=== PATIENT | male | born 1955 | race Caucasian/White ===

== ENCOUNTER 2020-12-03 20:17 | Emergency (ER) | payer BC ==
[2020-12-03] MEDS ORDERED: Ibuprofen 600 MG Tab PO ONE (21:26)
--- NOTE | 2020-12-03 21:26 | EDM.PDOC ---
ED HPI GENERAL MEDICAL PROBLEM - General Chief Complaint: Respiratory Problem Stated Complaint: COVID+/LOW O2 Time Seen by Provider: 12/03/20 20:45 Source of Information: Reports: Patient History Limitations: Reports: No Limitations, Other (ED vital signs reveal a temp of 102.1, pulse of 92, respiratory rate of 28, blood pressure 167/91, pulse ox 92% on room air.) - History of Present Illness INITIAL COMMENTS - FREE TEXT/NARRATIVE: 65-year-old male presents the emergency department today with increasing shortness of breath and low oxygen saturations due to Covid. The patient states he developed Covid symptoms on 11/26/2020 and was seen at [facility] 2 days ago and tested positive for Covid. He states that today he had a high fever and had increasing shortness of breath so he returned to the walk-in clinic. Apparently they did perform a chest x-ray and do lab studies. He was notified that he has pneumonia related to Covid. He was prescribed cough syrup, methylprednisolone, Tessalon Perles and an inhaler as well as given home oxygen monitor. He was told to come to emergency department if his O2 saturations were less than 90%. Patient states that his monitor showed 88% and he elected to come to the emergency department. The patient denies any history of smoking. He is obese with a BMI of 42.4. He also has a history of hypertension. Generalized Pain Score (Numeric/FACES): 6 - Related Data Allergies Allergy/AdvReac Type Severity Reaction Status Date / Time No Known Allergies Allergy Verified 12/03/20 20:30 Home Meds: Home Meds Albuterol Sulfate [Albuterol Sulfate HFA] 1 puff INH Q4H PRN 12/03/20 [History] Benzonatate 1 tab PO TID PRN 12/03/20 [History] Sertraline [Zoloft] 1 tab PO DAILY 12/03/20 [History] Valsartan 1 tab PO DAILY 12/03/20 [History] busPIRone [Buspar] 1 tab PO BID 12/03/20 [History] methylPREDNISolone [Methylprednisolone] 1 dose PO ASDIRECTED 12/03/20 [History] Past Medical History Cardiovascular History: Reports: Hypertension Psychiatric History: Reports: Anxiety, Depression - Infectious Disease History Infectious Disease History: Reports: Chicken Pox, Novel Coronavirus - Past Surgical History Musculoskeletal Surgical History: Reports: Knee Replacement, Other (See Below) Other Musculoskeletal Surgeries/Procedures:: back surgery Social & Family History - Tobacco Use Tobacco Use Status *Q: Current Every Day Tobacco User Years of Tobacco use: 50 Packs/Tins Daily: 0.5 - Caffeine Use Caffeine Use: Reports: Coffee, Tea - Recreational Drug Use Recreational Drug Use: No ED ROS GENERAL - Review of Systems Review Of Systems: Comprehensive ROS is negative, except as noted in HPI. ED EXAM, GENERAL - Physical Exam Exam: See Below Exam Limited By: No Limitations General Appearance: Alert, WD/WN, Mild Distress Ears: Normal External Exam, Hearing Grossly Normal Nose: Normal Inspection Throat/Mouth: Normal Inspection, Normal Lips, Normal Voice, No Airway Compromise Head: Atraumatic Neck: Normal Inspection, Supple Respiratory/Chest: Lungs Clear, No Accessory Muscle Use, Chest Non-Tender, Respiratory Distress, Decreased Breath Sounds Cardiovascular: Normal Peripheral Pulses, Regular Rate, Rhythm, No Edema, No Murmur Peripheral Pulses: 2+: Radial (L), Radial (R) GI/Abdominal: Normal Bowel Sounds, Soft, Non-Tender, No Distention (Male) Exam: Deferred Rectal (Males) Exam: Deferred Back Exam: Normal Inspection Extremities: Normal Inspection Neurological: Alert, Oriented, Normal Cognition Psychiatric: Normal Affect, Normal Mood Skin Exam: Warm, Dry, Intact, Normal Color, No Rash Lymphatic: No Adenopathy Course - Vital Signs Text/Narrative:: As stated above patient presents with increased shortness of breath due to worsening Covid symptoms. Upon exam, the patient's O2 saturations are 94% on room air. He does appear dyspneic at rest. Physical exam reveals diminished lung sounds posteriorly. Patient states that he was scheduled to have monoclonal antibodies as an outpatient on Sunday, December 06, 2020. I feel that this patient would be a good candidate to receive monoclonal antibodies today. I did discuss this with him and he is agreeable to receiving this. We will obtain lab studies to include a CBC, CMP, magnesium, C-reactive protein and a D- dimer as well as a portable chest x-ray. Last Recorded V/S: Last Vital Signs Temp 102.1 F H 12/03/20 20:24 Pulse 92 12/03/20 20:24 Resp 28 H 12/03/20 20:24 BP 167/91 H 12/03/20 20:24 Pulse Ox 92 L 12/03/20 20:24 - Orders/Labs/Meds Labs: Laboratory Tests 12/03/20 12/03/20 12/03/20 Range/Units 21:25 21:25 21:25 WBC 4.28 (4.23-9.07) K/mm3 RBC 3.85 L (4.63-6.08) M/mm3 Hgb 11.9 L (13.7-17.5) gm/dl Hct 35.9 L (40.1-51.0) % MCV 93.2 H (79.0-92.2) fl MCH 30.9 (25.7-32.2) pg MCHC 33.1 (32.2-35.5) g/dl RDW Std Deviation 51.4 H (35.1-43.9) fL Plt Count 159 L (163-337) K/mm3 MPV 10.2 (9.4-12.3) fl Neut % (Auto) 72.3 H (34.0-67.9) % Lymph % (Auto) 17.5 L (21.8-53.1) % [place] % (Auto) 9.6 (5.3-12.2) % Eos % (Auto) 0.2 L (0.8-7.0) Baso % (Auto) 0.2 (0.1-1.2) % Neut # (Auto) 3.09 (1.78-5.38) K/mm3 Lymph # (Auto) 0.75 L (1.32-3.57) K/mm3 [place] # (Auto) 0.41 (0.30-0.82) K/mm3 Eos # (Auto) 0.01 L (0.04-0.54) K/mm3 Baso # (Auto) 0.01 (0.01-0.08) K/mm3 D-Dimer, Quantitative 0.58 H (0.19-0.50) mg/L Sodium 133 L (136-145) mEq/L Potassium 4.4 (3.5-5.1) mEq/L Chloride 98 (98-107) mEq/L Carbon Dioxide 26 (21-32) mEq/L Anion Gap 13.4 (5-15) BUN 24 H (7-18) mg/dL Creatinine 1.0 (0.7-1.3) mg/dL Est Cr Clr Drug Dosing 86.77 mL/min Estimated GFR (MDRD) > 60 (>60) mL/min BUN/Creatinine Ratio 24.0 H (14-18) Glucose 114 H (70-99) mg/dL Calcium 8.6 (8.5-10.1) mg/dL Magnesium 1.7 L (1.8-2.4) mg/dL Total Bilirubin 0.3 (0.2-1.0) mg/dL AST 32 (15-37) U/L ALT 43 (16-63) U/L Alkaline Phosphatase 56 (46-116) U/L C-Reactive Protein 15.4 H* (<1.0) mg/dL Total Protein 7.0 (6.4-8.2) g/dl Albumin 3.4 (3.4-5.0) g/dl Globulin 3.6 gm/dL Albumin/Globulin Ratio 0.9 L (1-2) Meds: Medications Discontinued Medications Generic Name Dose Route Start Last Admin Trade Name Freq PRN Reason Stop Dose Admin Al Hydroxide/Mg Hydroxide 30 ml 12/03/20 22:13 12/03/20 23:53 Aluminum Hydroxide/Magnesium Hydroxide/Simethicone Susp 30 Ml Cup PO 12/03/20 22:14 30 ml ONETIME ONE Administration Diphenhydramine HCl 50 mg 12/03/20 22:55 Diphenhydramine 50 Mg/Ml Sdv IVPUSH ONETIME PRN hypersensitivity reaction Diphenhydramine HCl 50 mg 12/03/20 23:12 Diphenhydramine 50 Mg/Ml Sdv IVPUSH ONETIME PRN hypersensitivity reaction Epinephrine HCl 0.3 mg 12/03/20 22:55 Epinephrine 1 Mg/Ml Sdv IM ONETIME PRN hypersensitivity reaction Epinephrine HCl 0.3 mg 12/03/20 23:12 Epinephrine 1 Mg/Ml Sdv IM ONETIME PRN hypersensitivity reaction Famotidine 20 mg 12/03/20 22:55 Famotidine 20 Mg/2 Ml Sdv IVPUSH ONETIME PRN hypersensitivity reaction Famotidine 20 mg 12/03/20 23:12 Famotidine 20 Mg/2 Ml Sdv IVPUSH ONETIME PRN hypersensitivity reaction CASIRIVIMAB/IMDEVIMAB 10 ml/ 110 mls @ 220 mls/hr 12/03/20 22:55 Sodium Chloride IV 12/03/20 23:24 ONETIME ONE SOTROVIMAB 500 mg/ Sodium 108 mls @ 216 mls/hr 12/03/20 23:12 12/03/20 23:52 Chloride IV 12/03/20 23:41 216 mls/hr ONETIME ONE Administration Ibuprofen 600 mg 12/03/20 21:26 12/04/20 01:28 Ibuprofen 600 Mg Tab PO 12/03/20 21:27 Not Given ONETIME ONE Methylprednisolone Sodium Succinate 125 mg 12/03/20 22:55 Methylprednisolone Sodium Succinate 125 Mg/2 Ml Sdv IVPUSH ONETIME PRN hypersensitivity reaction Methylprednisolone Sodium Succinate 125 mg 12/03/20 23:12 Methylprednisolone Sodium Succinate 125 Mg/2 Ml Sdv IVPUSH ONETIME PRN hypersensitivity reaction Ondansetron HCl 4 mg 12/03/20 23:42 12/03/20 23:52 Ondansetron 4 Mg Tab.Dis PO 12/03/20 23:43 4 mg ONETIME ONE Administration Sodium Chloride 30 ml 12/03/20 23:00 Sodium Chloride 0.9% 10 Ml Syringe FLUSH ASDIRECTED [facility] Sodium Chloride 30 ml 12/03/20 23:15 Sodium Chloride 0.9% 10 Ml Syringe FLUSH ASDIRECTED [facility] - Re-Assessments/Exams Free Text/Narrative Re-Assessment/Exam: 12/03/20 22:07 Portable checks x-ray reveals scattered areas of infiltrate consistent with Covid pneumonia. 12/03/20 22:56 Hematology reveals a WBC of 4.28, hemoglobin 11.9, hematocrit 35.9, platelet count 159 Coagulation reveals a D-dimer of 0.58 Chemistry reveals a sodium of 133, potassium 4.4, anion gap 13.4, BUN 24, creatinine 1.0, glucose 114, magnesium 1.7, C-reactive protein 15.4 I spoke with the patient to provide information about Regeneron treatment for himself. I offered her the patient and caregiver [employer] Regeneron fax sheet to read and review. I stated the drug has been approved by an emergency use authorization process and has not been fully FDA approved or reviewed. The patient meets the EUA requirements. I discussed there are other potential treatment options that are currently not FDA approved to treat COVID-19. Offered opportunity to ask questions and all questions were answered. The patient voiced understanding and agreed to proceed with the treatment for himself. 12/03/20 23:13 Regeneron is not available per the nursing staff. Pt will receive Sotrovimab. Departure - Departure Time of Disposition: 01:24 Disposition: Home, Self-Care 01 Condition: Good Clinical Impression: COVID-19 - Discharge Information Instructions: COVID-19 Frequently Asked Questions, 10 Things You Can Do to Manage Your COVID-19 Symptoms at Home - [facility] (09/10/2020) Referrals: PCP,None [Primary Care Provider] - Forms: ED Department Discharge Additional Instructions: You were seen in the emergency department with worsening Covid symptoms, increasing shortness of breath and decreasing oxygen saturations. Chest x-ray was completed which does show pneumonia associated with Covid. Lab studies were also completed which were essentially unremarkable. You did receive monoclonal antibody treatment which you tolerated well. You likely will start to feel better in the next couple of days. Recommend getting plenty of rest, drink plenty of fluids and eat small frequent meals. Should your condition worsen or change, do not hesitate returning to the emergency department.
[2020-12-03] MEDS ORDERED: Aluminum Hydroxide/Magnesium Hydroxide/Simethicone Susp 30 ML Cup PO ONE (22:13)
[2020-12-03] MEDS ORDERED: diphenhydrAMINE 50 MG/ML SDV IVPUSH PRN ×2 (22:55→23:12)
[2020-12-03] MEDS ORDERED: Famotidine 20 MG/2 ML SDV IVPUSH PRN ×2 (22:55→23:12)
[2020-12-03] MEDS ORDERED: methylPREDNISolone Sodium Succinate 125 MG/2 ML SDV IVPUSH PRN ×2 (22:55→23:12)
[2020-12-03] MEDS ORDERED: EPINEPHrine 1 MG/ML SDV IM PRN ×2 (22:55→23:12)
[2020-12-03] MEDS ORDERED: Sodium Chloride 0.9% 10 ML Syringe FLUSH SCH ×2 (23:00→23:15)
[2020-12-03] MEDS ORDERED: Ondansetron 4 MG Tab.DIS PO ONE (23:42)
--- NOTE | 2020-12-04 07:23 | CR ---
Chest: Frontal view of the chest was obtained. Comparison: No prior chest imaging is available. Heart size and mediastinum are within normal limits. Lungs show no definite acute parenchymal change. Bony structures show nothing acute. Impression: 1. Nothing acute is definitely appreciated on frontal chest x-ray. Diagnostic code #1
== END 2020-12-04 01:24 | disposition home or self-care (01) ==
LOC: JD.ED 20:17
DX: U07.1 COVID-19 (principal); I10 Essential (primary) hypertension; Z72.0 Tobacco use; Z79.899 Other long term (current) drug therapy
CPT/HCPCS: 36415; 71045; 80053; 83735; 85025; 85379; 86140; 99285; A9270; M0247; Q0247

== ENCOUNTER 2020-12-10 08:50 | Emergency (ER) | payer BC ==
[2020-12-10] MEDS ORDERED: Sodium Chloride 0.9% 10 ML Syringe FLUSH PRN (09:08)
[2020-12-10] MEDS ORDERED: Lactated Ringers 1,000 ML IV SCH (09:15)
--- NOTE | 2020-12-10 09:25 | EDM.PDOC ---
ED HPI GENERAL MEDICAL PROBLEM - General Chief Complaint: Cardiovascular Problem Stated Complaint: [facility] Time Seen by Provider: 12/10/20 08:56 Source of Information: Reports: Patient, EMS, Provider History Limitations: Reports: No Limitations - History of Present Illness INITIAL COMMENTS - FREE TEXT/NARRATIVE: The patient presents by [facility] from the [facility] for hypotension, dizziness, and diaphoresis. The patient was diagnosed with COVID on the 01 of December. He felt rough for a few days and this morning he felt good and was going in to get rechecked for COVID. On the way in he got dizzy like lightheaded and he was diaphoretic. They checked his blood pressure and it was 80 systolic. They started an IV and gave him some LR. EMS brought him here. He says he feels good now. He has no fever, chills, cough, chest pain, shortness of breath, abdominal pain, nausea or vomiting. He has no medical problems such as asthma, COPD, heart disease, hypertension or hypercholesterolemia. He does not smoke. Onset: Sudden Duration: Minutes: Severity: Moderate Improves with: Reports: None Worsens with: Reports: None Associated Symptoms: Reports: No Other Symptoms - Related Data Allergies Allergy/AdvReac Type Severity Reaction Status Date / Time No Known Allergies Allergy Verified 12/10/20 08:58 Home Meds: Home Meds Albuterol Sulfate [Albuterol Sulfate HFA] 1 puff INH Q4H PRN 12/03/20 [History] Sertraline [Zoloft] 1 tab PO DAILY 12/03/20 [History] Valsartan 1 tab PO DAILY 12/03/20 [History] busPIRone [Buspar] 1 tab PO BID 12/03/20 [History] Past Medical History Cardiovascular History: Reports: Hypertension Psychiatric History: Reports: Anxiety, Depression Endocrine/Metabolic History: Reports: Obesity/BMI 30+ - Infectious Disease History Infectious Disease History: Reports: Chicken Pox, Novel Coronavirus - Past Surgical History Musculoskeletal Surgical History: Reports: Knee Replacement, Other (See Below) Other Musculoskeletal Surgeries/Procedures:: back surgery Social & Family History - Tobacco Use Tobacco Use Status *Q: Never Tobacco User - Caffeine Use Caffeine Use: Reports: Tea - Recreational Drug Use Recreational Drug Use: No ED ROS GENERAL - Review of Systems Review Of Systems: See Below Constitutional: Reports: No Symptoms HEENT: Reports: No Symptoms Respiratory: Reports: No Symptoms Cardiovascular: Reports: Lightheadedness. Denies: Chest Pain Endocrine: Reports: No Symptoms GI/Abdominal: Reports: No Symptoms : Reports: No Symptoms Musculoskeletal: Reports: No Symptoms Neurological: Reports: Dizziness ED EXAM, GENERAL - Physical Exam Exam: See Below Exam Limited By: No Limitations General Appearance: Alert, No Apparent Distress Ears: Normal External Exam Nose: Normal Inspection Head: Atraumatic, Normocephalic Neck: Normal Inspection Respiratory/Chest: No Respiratory Distress, Lungs Clear, Normal Breath Sounds Cardiovascular: Regular Rate, Rhythm, No Edema, No Murmur GI/Abdominal: Soft, Non-Tender, No Organomegaly, No Mass Back Exam: Normal Inspection Extremities: Normal Inspection #1 Interpretation EKG Date: 12/10/20 Time: 09:36 Rhythm: NSR Rate (Beats/Min): 78 [place]: Normal P-Wave: Present QRS: Normal ST-T: Normal QT: Normal Course - Vital Signs Last Recorded V/S: Last Vital Signs Temp 96.7 F L 12/10/20 08:55 Pulse 76 12/10/20 08:55 Resp 16 12/10/20 08:55 BP 120/68 12/10/20 08:55 Pulse Ox 97 12/10/20 08:55 - Orders/Labs/Meds Orders: Active Orders 24 hr Category Date Time Status Cardiac Monitoring [RC] . DIRECTED Care 12/10/20 09:08 Active Peripheral IV Care [RC] . DIRECTED Care 12/10/20 09:09 Active Lactated Ringers [Ringers, Lactated] 1,000 ml Med 12/10/20 09:15 Active IV .BOLUS Sodium Chloride 0.9% [Saline Flush] Med 12/10/20 09:08 Active 10 ml FLUSH ASDIRECTED PRN Peripheral IV Insertion Adult [OM.PC] Stat Oth 12/10/20 09:08 Ordered Medication Orders Lactated Ringer's (Ringers, Lactated) 1,000 mls @ 500 mls/hr IV .BOLUS JUAN Last Admin: 12/10/20 09:13 Dose: 500 mls/hr Documented by: KINGA Sodium Chloride (Sodium Chloride 0.9% 10 Ml Syringe) 10 ml FLUSH ASDIRECTED PRN PRN Reason: Keep Vein Open Last Admin: 12/10/20 09:12 Dose: 10 ml Documented by: KINGA Labs: Laboratory Tests 12/10/20 12/10/20 12/10/20 Range/Units 09:33 09:33 09:33 WBC 8.43 (4.23-9.07) K/mm3 RBC 4.71 (4.63-6.08) M/mm3 Hgb 14.1 D (13.7-17.5) gm/dl Hct 43.2 (40.1-51.0) % MCV 91.7 (79.0-92.2) fl MCH 29.9 (25.7-32.2) pg MCHC 32.6 (32.2-35.5) g/dl RDW Std Deviation 49.1 H (35.1-43.9) fL Plt Count 340 H D (163-337) K/mm3 MPV 9.5 (9.4-12.3) fl Neut % (Auto) 70.5 H (34.0-67.9) % Lymph % (Auto) 17.3 L (21.8-53.1) % [place] % (Auto) 9.6 (5.3-12.2) % Eos % (Auto) 0 L (0.8-7.0) Baso % (Auto) 0.1 (0.1-1.2) % Neut # (Auto) 5.94 H (1.78-5.38) K/mm3 Lymph # (Auto) 1.46 (1.32-3.57) K/mm3 [place] # (Auto) 0.81 (0.30-0.82) K/mm3 Eos # (Auto) 0.00 L (0.04-0.54) K/mm3 Baso # (Auto) 0.01 (0.01-0.08) K/mm3 D-Dimer, Quantitative 0.76 H (0.19-0.50) mg/L Sodium 138 (136-145) mEq/L Potassium 4.1 (3.5-5.1) mEq/L Chloride 100 (98-107) mEq/L Carbon Dioxide 26 (21-32) mEq/L Anion Gap 16.1 H (5-15) BUN 32 H (7-18) mg/dL Creatinine 1.5 H (0.7-1.3) mg/dL Est Cr Clr Drug Dosing 57.84 mL/min Estimated GFR (MDRD) 47 (>60) mL/min BUN/Creatinine Ratio 21.3 H (14-18) Glucose 109 H (70-99) mg/dL Calcium 8.9 (8.5-10.1) mg/dL Total Bilirubin 0.6 (0.2-1.0) mg/dL AST 26 (15-37) U/L ALT 67 H (16-63) U/L Alkaline Phosphatase 59 (46-116) U/L Troponin I < 0.017 (0.00-0.056) ng/mL Total Protein 7.3 (6.4-8.2) g/dl Albumin 3.3 L (3.4-5.0) g/dl Globulin 4.0 gm/dL Albumin/Globulin Ratio 0.8 L (1-2) Meds: Medications Generic Name Dose Route Start Last Admin Trade Name Freq PRN Reason Stop Dose Admin Lactated Ringer's 1,000 mls @ 500 mls/hr 12/10/20 09:15 12/10/20 09:13 Ringers, Lactated IV 500 mls/hr .BOLUS JUAN Administration Sodium Chloride 10 ml 12/10/20 09:08 12/10/20 09:12 Sodium Chloride 0.9% 10 Ml Syringe FLUSH 10 ml ASDIRECTED PRN Administration Keep Vein Open - Re-Assessments/Exams Free Text/Narrative Re-Assessment/Exam: 12/10/20 09:26 I ordered an IV LR 1L bolus, CXR, EKG and labs. 12/10/20 09:43 His EKG shows a NSR with no acute changes. His CXR shows bilateral infiltrates consistent with COVID 12/10/20 10:25 His CBC looks good. His D-dimer was elevated at 0.76 consistent with COVID pneumonia. His anion gap was elevated at 16.1. His BUN is elevated at 32. His creatinine is elevated at 1.5. His ALT is elevated at 67. His troponin is negative. His oxygen saturations look good. He was dehydrated. He did get the monoclonal antibodies the last time he was in. Departure - Departure Time of Disposition: 10:30 Disposition: Home, Self-Care 01 Condition: Good Clinical Impression: COVID-19, Pneumonia due to COVID-19 virus, Dehydration, Renal insufficiency Referrals: PCP,None [Primary Care Provider] - Forms: ED Department Discharge Additional Instructions: Drink plenty of fluids. Take tylenol or motrin for any fever or pain. Follow up with your provider within a week. Please return if you are worse. Sepsis Event Note (ED) - Focused Exam Vital Signs: Vital Signs Temp Pulse Resp BP Pulse Ox 12/10/20 08:55 96.7 F L 76 16 120/68 97 - My Orders Last 24 Hours: My Active Orders 12/10/20 09:08 Cardiac Monitoring [RC] . DIRECTED Sodium Chloride 0.9% [Saline Flush] 10 ml FLUSH ASDIRECTED PRN Peripheral IV Insertion Adult [OM.PC] Stat 12/10/20 09:09 Peripheral IV Care [RC] . DIRECTED 12/10/20 09:15 Lactated Ringers [Ringers, Lactated] 1,000 ml IV .BOLUS - Assessment/Plan Last 24 Hours: My Active Orders 12/10/20 09:08 Cardiac Monitoring [RC] . DIRECTED Sodium Chloride 0.9% [Saline Flush] 10 ml FLUSH ASDIRECTED PRN Peripheral IV Insertion Adult [OM.PC] Stat 12/10/20 09:09 Peripheral IV Care [RC] . DIRECTED 12/10/20 09:15 Lactated Ringers [Ringers, Lactated] 1,000 ml IV .BOLUS
--- NOTE | 2020-12-10 09:54 | CR ---
Chest: Portable view of the chest was obtained. Comparison: Prior chest x-ray of 12/03/20. Patchy areas of increased density are seen throughout both sides of the chest, worse on the right side. These findings have increased from prior exam. Heart size and mediastinum are normal. Bony structures show nothing acute. Impression: 1. Increasing parenchymal density on both sides of the chest. Please exclude COVID pneumonia as an etiology. Diagnostic code #3
== END 2020-12-10 11:01 | disposition home or self-care (01) ==
LOC: JD.ED 08:50
DX: U07.1 COVID-19 (principal); J12.82 Pneumonia due to coronavirus disease 2019; E86.0 Dehydration; N28.9 Disorder of kidney and ureter, unspecified; I10 Essential (primary) hypertension; E66.9 Obesity, unspecified; Z68.41 Body mass index [BMI] 40.0-44.9, adult; Z79.899 Other long term (current) drug therapy
CPT/HCPCS: 36415; 71045; 80053; 84484; 85025; 85379; 93005; 99284; J7120